=== PATIENT | female | born 1990 | race Caucasian/White ===

== ENCOUNTER 2019-11-05 19:25 | Emergency (ER) | payer BC ==
[~2019-11-05] VITALS: Ht 165.1 cm; Wt 99.3 kg
[2019-11-05 19:38] VITALS: BP 118/77
--- NOTE | 2019-11-05 19:41 | NUR ---
PT BIBS C/O "LIGHTHEADEDNESS, DIZZINESS, DRY MOUTH X 2 DAYS." UPON ASSESSMENT NO NEURO DEFICIT, VSS, PT AMBULATORY. NO ACUTE DISTRESS NOTED. PT STATES "I FEEL LIKE I ATE AN EDIBLE, BUT I DID NOT."
== END 2019-11-05 20:03 | disposition home or self-care (01) ==
LOC: ER 19:28
DX: R42 Dizziness and giddiness (principal); F41.9 Anxiety disorder, unspecified; F39 Unspecified mood [affective] disorder